=== PATIENT | female | born 1960 | race Caucasian/White ===

== ENCOUNTER → 2016-05-30 | Outpatient (CLI) | payer BC ==
[~2016-05-30] MED LIST: ALPR0.5T78 PO; BUPR150T89 PO; CYCL-375 PO; ERGO400C PO; FLUT9.9S EA NOSTRIL; MELO-267 PO; METO-107 PO; MULT-806 PO; OMEP-29 PO; TRAM-277 PO; [UNRECOGNIZED DRUG - CODE] PO
--- NOTE | 2016-05-30 11:30 | DI ---
Indication:ITS.REASON: R13.14 DYSPHAGIA Procedure:ESOPHAGRAM ESOPHAGRAM: Technique:After ingesting air crystals, the patient swallowed thick and thin barium without difficulty. Fluoroscopic imaging was obtained in the upright LPO, supine AP, and right lateral positions. Findings:There is a small sliding esophageal hiatal hernia. The remainder of the esophagus is negative. Esophageal motility appears normal. The cricopharyngeus muscle relaxes completely. There is no Zenker's diverticulum. No gastroesophageal reflux is visualized. Impression:Small sliding esophageal hiatal hernia. Fluoroscopy dose: 152.98 mGy (Cumulative air kerma) Gaston Pittman RPA/ATTILA performed this under my direct supervision. .
== END ==
LOC: IMA 07:54
PROVIDERS: ATTEND Surgery
DX: K44.9 Diaphragmatic hernia without obstruction or gangrene (principal); R13.14 Dysphagia, pharyngoesophageal phase

== ENCOUNTER 2016-06-15 06:53 | Day surgery (SDC) | payer BC ==
[~2016-06-15] VITALS: Ht 167.6 cm; Wt 126.6 kg
[~2016-06-15 06:53] MED LIST changes: -CYCL-375 PO; +ESTR1TAB32 PO; -MELO-267 PO
[2016-06-15] MEDS ORDERED: LR 1,000 ML IV SCH (07:00)
[2016-06-15] MEDS ORDERED: LIDOCAINE 1% (10mg/ml) 2ml SDV INJ ONE (07:00)
[2016-06-15 07:05] VITALS: Ht 167.6 cm; Wt 126.6 kg
[2016-06-15 07:06] VITALS: BP 192/106; PULSE 86; RESP 16; TEMP 97.9; O2SAT 97
--- NOTE | 2016-06-15 07:22 | ANESPREOP ---
Anesthesia Record Date and Time DATE: 06/15/16 TIME: 07:19 Proposed Surgical Procedure EGD & COLONOSCOPY Allergies: Coded Allergies: No Known Drug Allergies (Verified Allergy, Unknown, 11/29/11) Ht/Wt/BMI Height: 5 ' 6.00 " Weight: 126.600 kg BMI: 45.1 kg/m2 Vital Signs Date Time Temp Pulse Resp B/P Pulse Ox O2 Delivery O2 Flow Rate FiO2 06/15/16 07:06 97.9 86 16 192/106 97 Room Air Medications Inpatient Medications Current Medications Medications (Trade) Dose Ordered Sig/Tanner Start Time Stop Time Status Last Admin Dose Admin Lactated Ringer's (Lactated Ringers) 1,000 ml @ 50 mls/hr Q20H 06/15/16 07:00 Alprazolam (Xanax) 0.5 Mg Tablet, 0.5 MG PO PRN, (Reported) Bupropion Hcl (Wellbutrin Sr) 150 Mg Tablet.sa, 150 MG PO DAILY, (Reported) Cholecalciferol (Vitamin D3) (Vitamin D) 400 Unit Capsule, Unknown Dose PO DAILY , (Reported) Estrogen,Alma Delia/Me-Testosterone (Eemt Ds 1.25-2.5 mg Tablet) 1 Tab Tablet, 1 TAB PO DAILY, (Reported) Fluticasone Propionate (Flonase Allergy Relief 50 mcg/actuation Nasal) 9.9 Ml [place].susp, 2 SPRAY EA NOSTRIL DAILY, (Reported) Glucos-Msm/Chondro Saavedra A (Ivkbiiqvkzr-Trqgeevkt-Ntv Cap) 1 Cap Capsule, 3 CAP PO DAILY, (Reported) Metoprolol Succinate (Metoprolol Succinate) 50 Mg Tab.sr.24h, 50 MG PO DAILY, ( Reported) Multivitamins (Multivitamin) 1 Tab Tablet, 1 TAB PO DAILY, (Reported) Omeprazole (Prilosec) 20 Mg Capsule.dr, 20 MG PO DAILY, (Reported) Tramadol Hcl (Tramadol Hcl) 50 Mg Tablet, 50 MG PO PRN, (Reported) Currently on Beta Suzanna: Yes Beta Suzanna Last Taken: Metoprolol 1300 Medical/Surgical History Anesthesia PMH: Reports: *Hypertension, Arthritis (RIGHT HIP,ALL OVER), Hiatal Hernia (HX OF), Obesity, Pneumonia (2016), Reflux (REFLUX ESOPHAGITIS), Sleep Apnea (DOES NOT USE HER CPAP), Denies: *Angina, *Diabetes, *Dyspnea, *[place], Anesthesia Reactions (NO AIRWAY PROBLEMS), Asthma, Blood Transfusion Reac, CHF, COPD, CVA/Stroke/TIA, Cancer, Clotting Problems, Deep Vein Thrombosis, Glaucoma , Headaches, Malignant Hyperthermia, Renal Disease, Rheumatic Fever, Seizures, Thyroid Disease, Tuberculosis Smoking Status: Former smoker (2010) Substance Use Type: does not use HX of Last Menstrual Period: 2011 Past Surgical History Orthopedic Surgeries: Yes - TOTAL RIGHT HIP FEB 2015 Abdominal Surgeries: Yes - LAP RONN, EXP LAP,JEJUNOSTOMY CREATED,1998-REDID JEJUNOSTOMY Genitourinary Surgeries: No Cardiac Surgeries: No Endocrine Surgeries: No Reproductive Surgeries: Yes - HYSTEROSCOPY, D&C, POLYPECTOMY, HYST/BSO Neurological Surgeries: No Ear Surgeries: No Nose Surgeries: Yes - SEPTOPLASTY, RESECTION OF TURBINATES,SINUS SURGERY Throat Surgeries: Yes - SEVERAL EGD WITH DIL Other Surgeries: Yes - COLONOSCOPY Anesthesia Adverse Reactions: FOUND none Family Hx of Anesthesia Advers: none Hx of Motion Sickness: No Pertinent Findings EKG Rhythm: Sinus Rhythm Physical Exam Respiratory: Bilat breath sounds equal, Lungs clear Cardiovascular: FOUND Regular rate, rhythm, FOUND No murmur Airway Assessment Mallampati Score: I TMD: 3 Fingerbreadths Neck Extension: Good Overall Assessment: No Airway Concerns ASA: 3 Plan Anesthesia Plan: TIVA Discussion Discussed risks/options/alternatives of anesthesia and questions answered. Patient consents. Nursing pain assessment noted. Attestation Statement Prior to the delivery of any anesthetic medication, I examined the patient, developed the plan, obtained the patient's consent and discussed the risk and benefits of the procedure with the patient/guardian. HELEN KENT CRNA Jun 15, 2016 07:22
[2016-06-15] MEDS ORDERED: LIDOCAINE VISCOUS 2% Oral Soln 15ml UD ONE (08:11)
[2016-06-15] MEDS ORDERED: KETAMINE 500mg/10ml INJECTION ONE (08:24)
[2016-06-15] MEDS ORDERED: LIDOCAINE 2% (20mg/ml) 5ml PF SDV ONE (08:44)
[2016-06-15] MEDS ORDERED: PROPOFOL 500mg 50 ML IV ONE (08:44)
[2016-06-15 08:52] VITALS: BP 173/87; PULSE 77; RESP 12; TEMP 98.5; O2SAT 98
--- NOTE | 2016-06-15 08:55 | GSPOSTPROC ---
Immediate Operative Note DATE: 06/15/16 TIME: 08:54 Postop Diagnosis: Dysphagia,Desire for screening Surgical Procedure: C-scope, EGD w/Biopsies Surgeon: Noe ASA: 3 CON TURNER MD Jun 15, 2016 08:55
--- NOTE | 2016-06-15 08:58 | ANESPO ---
Post-Op Note Date 06/15/16 Time: 09:00 Status Pt Participated in Evaluation: Pt participated in person Vital Signs Date Time Temp Pulse Resp B/P Pulse Ox O2 Delivery O2 Flow Rate FiO2 06/15/16 07:06 97.9 86 16 192/106 97 Room Air Respiratory Function: Airway patent Mental Status: Alert/oriented Pain Level Intensity: 0 Hydration: IV infusing Complications during Recovery None apparent Follow-Up Instructions Instructions Per Surgeon HELEN KENT CRNA Jun 15, 2016 08:58
[2016-06-15 09:07] VITALS: BP 117/76; PULSE 63; RESP 16; O2SAT 98
[2016-06-15 09:22] VITALS: BP 129/76; PULSE 69; RESP 12; O2SAT 98
[2016-06-15 09:37] VITALS: BP 176/99; PULSE 63; RESP 14; TEMP 97.5; O2SAT 98
--- NOTE | 2016-06-15 16:40 | OPNOTEF ---
DATE OF OPERATION 06/15/2016 PREOPERATIVE DIAGNOSES 1. Gastroesophageal reflux disease. 2. Small sliding esophageal hiatal hernia demonstrated on 05/30/2016 esophagram. 3. Recurrent dysphagia. 4. Desire for screening for colon and rectal carcinoma. POSTOPERATIVE DIAGNOSES 1. Gastroesophageal reflux disease. 2. Small sliding esophageal hiatal hernia. 3. Recurrent dysphagia. 4. Desire for screening for colon and rectal carcinoma. 5. Normal findings at colon and rectum at total colonoscopy. OPERATION Esophagogastroduodenoscopy with biopsies and total colonoscopy. SURGEON Dr. Liu [facility] ASA Class 3 FINDINGS Mucosa at the esophagus appeared completely normal. There was no distal esophagitis. There were no esophageal erosions or ulcers. There were no Nelson's esophagus changes at the distal esophagus. There was no longitudinal furrowing at the esophageal mucosa. There was no Schatzki's ring present. There was no evidence of any narrowing anywhere at the esophagus or at the gastroesophageal junction. There was no esophageal stricture anywhere. The patient does have a small sliding hiatal hernia. Gastric mucosa appeared normal. Duodenal mucosa appeared normal. Findings were normal throughout the upper gastrointestinal tract except for the small sliding hiatal hernia. Findings were normal throughout the colon and rectum. There were no colon or rectal tumors. There were no colon or rectal polyps. There were no colonic angiodysplasia lesions. There was no melanosis coli. There was no colonic diverticulosis. There was no inflammatory bowel disease at the colon or rectum. DESCRIPTION OF OPERATION The patient was brought to the endoscopy room. The patient was placed on a cart in the endoscopy room. The patient was placed in left lateral recumbent position on the cart. Total colonoscopy was performed first. The Olympus colonoscope was used. The colonoscope was introduced into the rectum. The colonoscope was advanced up through the rectum and colon all way up to the cecum. The appendiceal orifice was visualized. The ileocecal valve was visualized. The colonoscope was then withdrawn out through the colon and rectum and removed from the patient. Digital rectal examination was performed. Findings throughout the procedure were as described above. The patient was kept in left lateral recumbent position on the cart in the endoscopy room. The patient continued to receive intravenous sedation medication administered by the nurse brush sander. Esophagogastroduodenoscopy was then performed. The Olympus upper GI endoscope was used. The upper GI endoscope was introduced into the esophagus. The upper GI endoscope was advanced down through the esophagus and stomach and into the duodenum. The upper GI endoscope was then withdrawn from the duodenum back into the stomach. The upper GI endoscope was retroflexed and the gastroesophageal junction was viewed from below. The upper GI endoscope was straightened out. Stomach was examined further. The upper GI endoscope was then withdrawn from the stomach back up into the esophagus. Esophageal mucosa was reexamined at this time. The endoscopic biopsy forceps was used to obtain random biopsies of mucosa throughout the esophagus. These were submitted for study by the pathologist. This was done to look for any evidence of eosinophilic esophagitis as a cause for the recurrent dysphagia. The upper GI endoscope was then removed from the esophagus. Findings throughout the procedure were as described above. The patient did continue to receive intravenous sedation medication administered by the nurse brush sander throughout the operation. The patient did tolerate the operation well. RECOMMENDATION Followup colonoscopy again in 10 years. MTDD
== END 2016-06-15 09:20 | disposition home or self-care (01) ==
LOC: SCU 06:53
PROVIDERS: ATTEND Surgery
DX: K21.9 Gastro-esophageal reflux disease without esophagitis (principal); K44.9 Diaphragmatic hernia without obstruction or gangrene; R13.10 Dysphagia, unspecified; Z12.11 Encounter for screening for malignant neoplasm of colon; F41.9 Anxiety disorder, unspecified; F32.9 Major depressive disorder, single episode, unspecified; I10 Essential (primary) hypertension; E66.01 Morbid (severe) obesity due to excess calories; Z68.42 Body mass index [BMI] 45.0-49.9, adult; J30.2 Other seasonal allergic rhinitis; Z87.891 Personal history of nicotine dependence; Z79.899 Other long term (current) drug therapy
CPT/HCPCS: 43239; 45378; J2704; J7120